=== PATIENT | male | born 1955 | race Caucasian/White ===

== ENCOUNTER 2018-01-27 23:05 | Observation (INO) | payer OTHER, BC ==
[2018-01-27] MEDS ORDERED: SODIUM CHLORIDE 0.9% FLUSH 10 ML FLUSH IVF (23:30)
[2018-01-27 23:37] LABS: AUTOMATED NEUTROPHIL # 6.9 TH/MM3 (1.8-7.7); BASOPHIL # 0.1 TH/MM3 (0-0.2); BASOPHIL % 0.6 % (0.0-2.0); EOSINOPHIL # 0.1 TH/MM3 (0-0.4); HEMATOCRIT 41.6 % (39.0-51.0); HEMO FLAGS DIFF FINAL; HEMOGLOBIN 14.2 GM/DL (13.0-17.0); LYMPH % 21.4 % (9.0-44.0); LYMPHOCYTE # 2.2 TH/MM3 (1.0-4.8); MEAN CORPUSCULAR HEMOGLOBIN 29.9 PG (27.0-34.0); MEAN PLATELET VOLUME 9.4 FL (7.0-11.0); MONO % 8.2 % (0.0-8.0); MONOCYTE # 0.8 TH/MM3 (0-0.9); NEUT % 68.8 % (16.0-70.0); PLATELET COUNT 208 TH/MM3 (150-450); RED BLOOD COUNT 4.73 MIL/MM3 (4.50-5.90); RED CELL DISTRIBUTION WIDTH 13.7 % (11.6-17.2); WHITE BLOOD COUNT 10.1 TH/MM3 (4.0-11.0)
[2018-01-27 23:47] LABS: PROTHROMBIN TIME - PATIENT 10.2 SEC (9.8-11.6)
[2018-01-27] MEDS: NITROGLYCERIN 0.4 MG SL 25 TABS/BTL SL (23:48)
[2018-01-28] MEDS: SODIUM CHLORID 0.9% 500 ML INJ 500 ML IV ×2 (00:06→01:34)
[2018-01-28 00:10] LABS: ALBUMIN 3.6 GM/DL (3.4-5.0); ALKALINE PHOSPHATASE 88 U/L (45-117); ALT (GPT) 30 U/L (12-78); ANION GAP 8 MEQ/L (5-15); AST (GOT) 40 U/L (15-37); BICARBONATE 26.1 MEQ/L (21.0-32.0); BLOOD UREA NITROGEN 15 MG/DL (7-18); CALCIUM 8.4 MG/DL (8.5-10.1); CHLORIDE 108 MEQ/L (98-107); CREATINE KINASE 151 U/L (39-308); CREATININE 1.12 MG/DL (0.60-1.30); GLOMERULAR FILTRATION RATE 67 ML/MIN (>89); GLUCOSE,RANDOM 87 MG/DL (74-106); LIPASE 182 U/L (73-393); MAGNESIUM 2.2 MG/DL (1.5-2.5); POTASSIUM 4.7 MEQ/L (3.5-5.1); SODIUM (NA) 142 MEQ/L (136-145); TOTAL BILIRUBIN ADULT 0.4 MG/DL (0.2-1.0); TOTAL PROTEIN 7.4 GM/DL (6.4-8.2); TROPONIN I LESS THAN 0.02 NG/ML (0.02-0.05)
[2018-01-28 00:26] LABS: CKMB 1.3 NG/ML (0.5-3.6)
[2018-01-28] MEDS: ASPIRIN 81 MG CHEW TAB CHEW (00:27)
[2018-01-28] MEDS: IOHEXOL 350 MG/ML 10 ML VIAL (for RAD DIAG) IVCONTRAST (00:38)
[2018-01-28 01:08] LABS: D-DIMER 0.32 MG/L FEU (0.00-0.50)
[2018-01-28 01:18] LABS: B-TYPE NATRIURETIC PEPTIDE 24 PG/ML (0-100)
[2018-01-28] MEDS ORDERED: SODIUM CHLORIDE 0.9% FLUSH 10 ML FLUSH IV FLUSH (02:00)
[2018-01-28] MEDS ORDERED: ACETAMINOPHEN 500 MG CPLT PO (02:00)
[2018-01-28] MEDS ORDERED: ONDANSETRON HCL 4 MG/2 ML VIAL IV PUSH (02:00)
[2018-01-28] MEDS: ALUMINUM/MAGNESIUM/SIMETH 30 ML CUP PO (02:45)
[2018-01-28] MEDS: ACETAMINOPHEN/HYDROcodone 325 MG/7.5 MG TAB PO (02:46)
[2018-01-28 04:17] LABS: TROPONIN I LESS THAN 0.02 NG/ML (0.02-0.05)
[2018-01-28 04:18] LABS: CREATINE KINASE 110 U/L (39-308)
[2018-01-28 04:31] LABS: CKMB 1.4 NG/ML (0.5-3.6)
[2018-01-28 06:09] LABS: TROPONIN I LESS THAN 0.02 NG/ML (0.02-0.05)
[2018-01-28 06:10] LABS: CREATINE KINASE 88 U/L (39-308)
[2018-01-28] MEDS: SODIUM CHLORIDE 0.9% FLUSH 10 ML FLUSH IV FLUSH (10:43)
[2018-01-28] MEDS: FAMOTIDINE 20 MG TAB PO (10:43)
== END 2018-01-28 11:21 | disposition home or self-care (01) ==
LOC: NEPC 23:05 → NEDA 01-28 01:25 → NEPFCDU 01-28 02:49
DX: R07.89 Other chest pain (principal); R06.02 Shortness of breath; M54.9 Dorsalgia, unspecified; Z96.649 Presence of unspecified artificial hip joint
CPT/HCPCS: 71046; 71275; 74174; 80053; 82550; 82552; 83690; 83735; 83880; 84484; 85025; 85379; 85610; 85730; 93005; 93017; 96360; 96361; 99285-25